=== PATIENT | male | born 1990 | race Caucasian/White ===

== ENCOUNTER 2016-05-13 21:47 | Observation (INO) | payer MEDICAID, OTHER ==
[2016-05-13] MEDS ORDERED: NS 0.9% 1000 ML* 1,000 ML IV ONE (22:06)
[2016-05-13] MEDS ORDERED: Glucagon* 1 MG VIAL IV ONE (22:07)
[2016-05-13] MEDS ORDERED: Meperidine SYRINGE* 50 MG/ML ONE (23:20)
[2016-05-13] MEDS ORDERED: Midazolam* 1 MG/ML 10 ML VIAL (10 MG) ONE (23:20)
--- NOTE | 2016-05-13 23:52 | CONS ---
CONSULTATION REPORT: DATE OF CONSULT: 05/13/16 INDICATION: Esophageal foreign body. REQUESTING PHYSICIAN: Dr. Garsia in the emergency room. HISTORY OF PRESENT ILLNESS: This is a 26-year-old male with a history of dysphagia and asthma who states that he was eating chicken and rice around 7 p.m. tonight. He feels that the chicken became stuck. He is unable to swallow his own saliva and secretions. He does feel a pressure sensation at his sternal notch; however, no chest pain. He has never had dysphagia this bad in the past. He denies any family history of esophageal issues. He does have asthma for which he takes albuterol. He denies any surgeries. ALLERGIES: To AMOXICILLIN and TRAMADOL. SOCIAL HISTORY: He denies any drugs, occasional alcohol. REVIEW OF SYSTEMS: 12 systems were reviewed with the patient other than that mentioned in the HPI are unremarkable. PHYSICAL EXAM: Temperature is 97.9, blood pressure is 121/84, pulse is 95, and respiratory rate of 20. General: Well-appearing male, in no apparent distress. Alert, oriented, pleasant, fluent, spitting up into a spittoon. HEENT : Mucous membranes are moist. Skin is warm and dry, tattoos. Heart: Regular rate and rhythm. Lungs: Clear to auscultation. Abdomen: Positive bowel sounds, soft, nontender, and nondistended. DIAGNOSTIC STUDIES/LAB DATA: None. ASSESSMENT AND PLAN: This is a 26-year-old male with a history of dysphagia who now has an esophageal foreign body impaction, likely chicken. At this point , we will need to remove it endoscopically. I will make arrangements for his EGD right now. CC: Dr. Jonah Sun * [id number]/[facility] #: [id number] [facility]
[2016-05-14] MEDS ORDERED: Glucagon* 1 MG VIAL IV ONE (02:08)
--- NOTE | 2016-05-14 02:18 | ED ---
Sandra Phillips Matthew, scribed for Krystina Garsiauel on 05/13/16 at 2208 . Throat Pain/Nasal Congestion - HPI Summary HPI Summary: A 26 y/o male presents to the ED with chicken lodge in his throat since 19:00 today. The patient states that he's unable to drink water. He's had similar episodes with bread, which he's normally able to resolved on his own by drinking water. He denies any other symptoms. - History of Current Complaint Chief Complaint: EDForeignBodyEsophag Time Seen by Provider: 05/13/16 21:58 Hx Obtained From: Patient Onset/Duration: Sudden Onset, Lasting Hours, Still Present Severity: Moderate Associated Signs And Symptoms: Positive: Dysphagia, FB Sensation Cough: None - Allergies/Home Medications Allergies/Adverse Reactions: Allergies Allergy/AdvReac Type Severity Reaction Status Date / Time Amoxicillin Allergy Mild Hives Verified 03/17/15 10:00 Tramadol Allergy Mild Hives Verified 03/17/15 10:00 PMH/Surg Hx/FS Hx/Imm Hx Endocrine/Hematology History: Denies: Hx Diabetes Cardiovascular History: Denies: Hx Hypertension, Hx Pacemaker/ICD Respiratory History: Reports: Hx Asthma History: Denies: Hx Renal Disease Sensory History: Denies: Hx Hearing Aid Psychiatric History: Denies: Hx Panic Disorder Infectious Disease History: No Infectious Disease History: Denies: Traveled Outside the [place] in Last 30 Days - Family History Known Family History: Positive: Hypertension Family History: FHx of [place] - Social History Alcohol Use: None Substance Use Type: Reports: None, Excessive Caffeine Hx Tobacco Use: Yes Smoking Status (MU): Current Every Day Smoker Review of Systems Constitutional: Negative Eyes: Negative ENT: Other - Difficulty Swallowing; Foreign body senstation in the throat Cardiovascular: Negative Respiratory: Negative Gastrointestinal: Negative Genitourinary: Negative Musculoskeletal: Negative Skin: Negative Neurological: Negative Psychological: Normal All Other Systems Reviewed And Are Negative: Yes Physical Exam Triage Information Reviewed: Yes Vital Signs On Initial Exam: Initial Vitals Temp Pulse Resp BP Pulse Ox 97.9 F 95 20 121/84 98 05/13/16 21:53 05/13/16 21:53 05/13/16 21:53 05/13/16 21:53 05/13/16 21:53 Vital Signs Reviewed: Yes Appearance: Positive: Well-Appearing, No Pain Distress Skin: Positive: Warm, Skin Color Reflects Adequate Perfusion, Dry Head/Face: Positive: Normal Head/Face Inspection Eyes: Positive: EOMI, GUS ENT: Positive: Other - Unable to drink water Neck: Positive: Supple, Nontender Respiratory/Lung Sounds: Positive: Clear to Auscultation, Breath Sounds Present Cardiovascular: Positive: RRR, Pulses are Symmetrical in both Upper and Lower Extremities Abdomen Description: Positive: Nontender, Soft Bowel Sounds: Positive: Present Musculoskeletal: Positive: Normal, Strength/ROM Intact Neurological: Positive: Normal, Sensory/Motor Intact, Alert, Oriented to Person Place, Time Psychiatric: Positive: Affect/Mood Appropriate Diagnostics - Vital Signs Vital Signs Temp Pulse Resp BP Pulse Ox 05/13/16 21:53 97.9 F 95 20 121/84 98 - Laboratory Lab Statement: Any lab studies that have been ordered have been reviewed, and results considered in the medical decision making process. EENT Course/Dx - Course Assessment/Plan: GI evaluted the patient and was unable to retrieve the foreign body. They will admit the patient into their services. - Diagnoses Provider Diagnoses: Foreign body, FB esophagus - Provider Notifications Discussed Care of Patient with: Dr. Young (Gastro) at 22:06 -- Notified of paitent's history and will come to evaluate the patient. Dr. Young (GI) at 02 :01 -- Will admit the patient into his services. Discharge - Discharge Plan Condition: Stable Disposition: ADMITTED TO [facility] Referrals: Dino CAMEJO,Jonah Stein [Primary Care Provider] - The documentation as recorded by the Sandra cagle Matthew accurately reflects the service I personally performed and the decisions made by , Nikita Garsia.
[2016-05-14] MEDS ORDERED: Ondansetron INJ* 2 MG/ML VIAL IV PRN ×2 (04:28→16:30)
[2016-05-14] MEDS ORDERED: NS 0.9% 1000 ML* 1,000 ML IV SCH (04:30)
[2016-05-14] MEDS ORDERED: HYDROmorphone INJ* 1 MG/ML CARPUJECT SYRINGE IV PRN ×2 (04:30→16:30)
--- NOTE | 2016-05-14 06:18 | PRO ---
DATE OF PROCEDURE: 05/14/16 - ROOM #349 PROCEDURE: EGD with attempted foreign body removal. MEDICATIONS GIVEN: 150 mg IV Demerol, 12 mg IV Versed. PROCEDURE: After the EGD procedure including risks, benefits, and alternatives not limited to perforation, surgery, and/or were explained to the patient. Written consent was then obtained. IV medication was given and a bite block was placed between the teeth. An Olympus gastroscope was then inserted into the patient's mouth and advanced to approximately 20 cm from the incisors. There was a very large meat bolus that was impacted at this area. I initially began with a Mcfarland net and was able to remove some small pieces and then switched over to a snare trying to cut the meat in half. Unfortunately, the snares would bend and the meat was very round in nature and there was nothing for the snare to grab on. As soon as we closed the snare I shaved off bits and pieces and eventually rounded off the piece of chicken. I then switched to Jumbo biopsy forceps and spent a great amount of time removing small bits and pieces. I eventually switched out to the large double bore therapeutic gastroscope in order to use the Jumbo biopsy forceps and spent even more time trying to pick the chicken apart piece by piece. I returned using Mcfarland net and snares and again each time, snare would just centrally slide right off the large piece of chicken. After approximately an hour and 45 minutes of procedure time, I did not feel that I was able to successfully remove the foreign body. I have been here now in the emergency room for 4 hours, it is now 2 o'clock in the morning, and I am absolutely exhausted. I would like to get general anesthesia to help, but they will not be here for an hour to an hour and a half, and I think at that point my fatigue would be a safety issue. Thus I am going to admit the patient to the hospital, give him more Glucagon, and have general anesthesia help me first thing in the morning to try and remove this foreign body. This was discussed with the patient's and I will be back in a few hours from now to reattempt this, hopefully with the help of general anesthesia. IMPRESSION: 1. EGD with unsuccessful removal of esophageal foreign body. 2. Meat impaction packed in extremely tight, 1 hour and 45 minutes was spent attempting and trying to remove it using various instruments. Please see the body of the note for the details. 3. I am unable to remove it right now, he will need general anesthesia in the OR and due to my fatigue, I think this should be delayed until first thing in the morning as it is now 2:11 in the morning. I will admit him to the hospital. [id number]/[facility] #: [id number] [facility]
[2016-05-14] MEDS ORDERED: fentaNYL* 50 MCG/ML 2 ML VIAL (100 MCG VIAL) ONE ×2 (14:21→15:29)
[2016-05-14] MEDS ORDERED: Midazolam* 1 MG/ML 2 ML VIAL (2 MG) ONE (14:21)
[2016-05-14] MEDS ORDERED: Ketorolac INJ* 30 MG/ML 1 ML VIAL ONE (14:31)
[2016-05-14] MEDS ORDERED: Ondansetron INJ* 2 MG/ML VIAL ONE (14:31)
[2016-05-14] MEDS ORDERED: Propofol* 10 MG/ML 20 ML BTL IV PUSH ONE (14:31)
[2016-05-14] MEDS ORDERED: Lidocaine 2% PF * 5 ML VIAL ONE (14:31)
[2016-05-14] MEDS ORDERED: HYDROmorphone INJ* 1 MG/ML CARPUJECT SYRINGE ONE (14:44)
[2016-05-14] MEDS ORDERED: Scopolamine 1.5 mg* PATCH TRANSDERM PRN (16:30)
[2016-05-14] MEDS ORDERED: fentaNYL* 50 MCG/ML 2 ML VIAL (100 MCG VIAL) IV PRN (16:30)
[2016-05-14] MEDS ORDERED: DiMENhydriNATE IV* 50 MG/ML VIAL IV PUSH PRN (16:30)
[2016-05-14] MEDS ORDERED: PROCHLORPERAZINE INJ 5 MG/ML 2 ML VIAL IV PRN (16:30)
[2016-05-14 17:36] VITALS: BP 119/60
--- NOTE | 2016-05-15 08:23 | PRO ---
PROCEDURE NOTE: DATE OF PROCEDURE: 05/14/16 - Inpatient room #349-02 PROCEDURE: EGD. INDICATION: Esophageal foreign body. NARRATIVE: This is the patient's second endoscopy today. Earlier this morning , I was called to the emergency room for his esophageal foreign body. I spent a total of four hours in the emergency room with at least two of those during the actual procedure trying to remove the esophageal foreign body. I was unfortunately unsuccessful. Please see the dictated report for full details. DESCRIPTION OF PROCEDURE: The patient was admitted to the hospital and General Anesthesia was able to provide anesthesia services for me. The patient was sedated and then repeat endoscopy revealed continued esophageal foreign body up fairly high in the esophagus at approximately 20 cm. I again used a snare to try and get it around the food bolus and remove it; however, the snare, I could not get around the food bolus. I then used biopsy forceps to pick away at the sides. I spent approximately half an hour trying to shave off the sides. At one point, I was able to grasp the foreign body and it began to turn. As I turned the scope, it seemed to corkscrew down the esophagus. It moved approximately 10 cm down to the 30- to 35-cm leticia. At that point, I again used the snare trying to take out the foreign body, that again was unsuccessful. I went back with the biopsy forceps, grabbed one of the sides and again was able to rotate it a little bit. At that point, I believe, suction from the stomach pulled it down through the GE junction and into the stomach. There was a large piece of chicken in the stomach. The duodenum was unremarkable. I then spent a couple of minutes evaluating the esophagus thoroughly. There was no evidence of tears in the esophageal mucosa. It does appear that he has eosinophilic esophagitis with dominant stricture at the 20-cm leticia. I am actually surprised at how good the esophageal mucosa looks for given the duration that the food impaction was present and the amount of time that I spent trying to remove it. The scope was withdrawn from the patient. Postop, he will return to his hospital room. If he is feeling well later on today, he can be discharged to home. He needs to stay on soft foods for the next 48 hours. He needs to cut off his food as well as he can and chew it very well. I am going to treat him empirically for eosinophilic esophagitis. I did not take biopsy today due to the fact that the esophageal mucosa was already friable from the past 24 hours; however, he will need a repeat endoscopy in a couple of weeks from now. [id number]/[facility] #: [id number] [facility]
[2016-05-17] MEDS ORDERED: Scopolamine PATCH Remove* 1 NOTE MISC PATCH OFF ONE (16:31)
--- NOTE | 2016-06-08 01:16 | HP ---
HISTORY AND PHYSICAL: DATE OF ADMISSION: 05/14/16 INDICATION: Esophageal foreign body. NARRATIVE: This is a 26-year-old male with a history of dysphagia and asthma who states that he was eating chicken and rice around 7 p.m. tonight. He feels that the chicken became stuck. He was unable to swallow his own saliva and secretions. He does feel pressure sensation in the sternal notch; however, no chest pain. He has never had dysphagia this bad in the past. He denies any family history of esophageal issues. He does have asthma for which he takes albuterol. He denies any surgeries. I did perform an upper endoscopy in the emergency room and spent approximately 2 hours trying to remove the chicken from his esophagus; however, I was unable. It is packed in extremely tight. Given that it is now approximately 2:30 in the morning, I am physically exhausted and do not feel that it is safe for me to continue with the procedure. Thus, I am going to admit him to the hospital and have anesthesia services see him in a few hours from now and we will take him to the operating room with general anesthesia for removal of the chicken. ALLERGIES: AMOXICILLIN and TRAMADOL. SOCIAL HISTORY: No drugs. Occasional alcohol. REVIEW OF SYSTEMS: 12 systems were reviewed, other than mentioned in the HPI were unremarkable. PHYSICAL EXAMINATION GENERAL: Well-appearing male, in no apparent distress. Alert, oriented, pleasant, pleasant, fluent. He was sitting up spitting into a spittoon. Now, he is sedated and lying flat in bed. He appears comfortable. VITAL SIGNS: Temperature is 97.9, blood pressure is 121/84, pulse is 95, respiratory rate is 20. HEENT: Mucous membranes are moist. LUNGS: Clear to auscultation bilaterally. No wheezes, rales, or rhonchi. HEART: Regular rate and rhythm. No murmurs, rubs, or gallops. ABDOMEN: Positive bowel sounds. Soft, nontender, and nondistended. No hepatosplenomegaly, masses, rebound, or guarding. SKIN: Warm and dry. He has numerous tattoos. DIAGNOSTIC STUDIES: None. ASSESSMENT AND PLAN: This is a 26-year-old male with a history of dysphagia who has chicken stuck in his esophagus. I have been here in the emergency room now for 4 hours with at least 2 of it spent trying to remove the foreign body. I am unable to at this point. I am going to admit him to the hospital for the next few hours and then have Anesthesia see him and I will reattempt the foreign body removal in a few hours from now. [id number]/[facility] #: [id number] [facility]
--- NOTE | 2016-06-08 12:51 | DS ---
CC: Dr. Jonah Sun DISCHARGE SUMMARY: DATE OF ADMISSION: 05/14/16 DATE OF DISCHARGE: 05/15/16 DISCHARGE DIAGNOSES: 1. Esophageal foreign body. 2. Eosinophilic esophagitis. HOSPITAL COURSE: The patient came into the emergency room last night with an esophageal foreign bod y. I spent greater than 2 hours trying to remove it in the emergency room; however, I was unable to remove it at that time. It was approximately 2:30 to 3 o'clock in the morning and I was physically exhausted and did not feel comfortable in proceeding forward. Due to my fatigue, I admitted the noel chow to the hospital and then arranged for anesthesia services that morning to take him to the [facility] ating room for general anesthesia sedation and then final removal of the foreign body. I spent almo st 1 hour on the second endoscopy trying to remove the foreign body and eventually did get it out. The patient appears to have eosinophilic esophagitis. He was discharged with medication for eosinop hilic esophagitis called Flovent. He will need to follow up with me for an outpatient EGD to confir m the diagnosis in approximately 4 to 6 weeks from now. I told him to cut his food very small and t o chew very well. [id number]/[facility] #: [id number]
== END 2016-05-14 18:30 | disposition home or self-care (01) ==
LOC: ED 21:47 → SSU 05-14 03:31
PROVIDERS: ADMIT Internal Medicine Gastroenterology; ATTEND Internal Medicine Gastroenterology
PROC: 0DC58ZZ Extirpation of Matter from Esophagus, Via Natural or Artificial Opening Endoscopic (ICD-10-PCS; principal; 2016-05-14 15:30)
DX: T18.128A Food in esophagus causing other injury, initial encounter (principal); X58.XXXA Exposure to other specified factors, initial encounter; Y92.9 Unspecified place or not applicable; R13.10 Dysphagia, unspecified; J45.909 Unspecified asthma, uncomplicated; F17.210 Nicotine dependence, cigarettes, uncomplicated
CPT/HCPCS: 96361; 96374; 96376; 99285; J1170; J1610; J1885; J2175; J2250; J2405; J2704; J3010